=== PATIENT | female | born 1965 | race Caucasian/White ===

== ENCOUNTER → 2021-02-07 | Day surgery (SDC) | payer BC | LOC: MAMMO 07:09 | PROVIDERS: ATTEND Obstetrics & Gynecology | PROC: 0H9T0ZX Drainage of Right Breast, Open Approach, Diagnostic (ICD-10-PCS; principal; 2021-02-07) | DX: D05.91 Unspecified type of carcinoma in situ of right breast (principal) | CPT/HCPCS: 19283; 76098; 88305 ==